=== PATIENT | female | born 1990 | race Caucasian/White ===

== ENCOUNTER 2018-12-16 20:57 | Outpatient (CLI) | payer OTHER ==
[2018-12-17] MEDS ORDERED: KEFLEX500 MG PO (11:38)
[2018-12-17] MEDS ORDERED: PHENAZOPYRIDIN100 MG PO (11:38)
== END 2018-12-17 16:16 | disposition home or self-care (01) ==
LOC: OBS/DEL 20:57
DX: O23.42 Unspecified infection of urinary tract in pregnancy, second trimester (principal); Z34.02 Encounter for supervision of normal first pregnancy, second trimester

== ENCOUNTER → 2018-12-16 | Emergency (ER) | payer OTHER ==
[~2018-12-16] MED LIST: KEFLEX500 MG PO; PHENAZOPYRIDIN100 MG PO
== END | disposition still patient (30) ==
LOC: ER 19:47
DX: O23.42 Unspecified infection of urinary tract in pregnancy, second trimester (principal); Z34.02 Encounter for supervision of normal first pregnancy, second trimester

== ENCOUNTER 2019-04-06 15:28 | Inpatient (IN) | payer OTHER ==
[~2019-04-06] VITALS: Ht 180.3 cm; Wt 64.0 kg
[2019-05-01] MEDS ORDERED: PRENATAL TABLE1 EAC1 PO (01:53)
== END 2019-05-03 14:36 | disposition home or self-care (01) | DRG 807 ==
LOC: OB/GYN 04-12 14:00 → LDR 05-01 01:41 → OB/GYN 05-02 10:46
PROVIDERS: ADMIT Obstetrics & Gynecology
PROC: 10E0XZZ Delivery of Products of Conception, External Approach (ICD-10-PCS; principal; 2019-05-01)
PROC: 0W8NXZZ Division of Female Perineum, External Approach (ICD-10-PCS; 2019-05-01)
PROC: 4A0HXFZ Measurement of Products of Conception, Cardiac Rhythm, External Approach (ICD-10-PCS; 2019-05-01)
PROC: 0HQ9XZZ Repair Perineum Skin, External Approach (ICD-10-PCS; 2019-05-01)
DX: O70.0 First degree perineal laceration during delivery (principal); Z37.0 Single live birth; O13.3 Gestational [pregnancy-induced] hypertension without significant proteinuria, third trimester; Z3A.39 39 weeks gestation of pregnancy